=== PATIENT | male | born 1985 | race Two or more races ===

== ENCOUNTER → 2016-12-01 | Outpatient (CLI) | payer OTHER ==
--- NOTE | 2016-12-01 11:56 | KCIC ---
Knee bilateral three views Indication: Bilateral knee pain. Time of exam 10:27 a.m. The joint spaces are fairly well maintained apart from perhaps minimal medial compartmental joint space narrowing on the right. The articular surfaces are smooth. No fracture, dislocation or effusion is seen. Impression: Mild right medial compartmental degenerative change. No acute bony abnormality is detected. Electronically signed by: Luis Miguel Bertrand MD (Dec 01, 2016 11:55:37)
== END | disposition home or self-care (01) ==
LOC: KCIC 10:20
PROVIDERS: ATTEND Family Medicine
DX: M17.11 Unilateral primary osteoarthritis, right knee (principal)
CPT/HCPCS: 73562